=== PATIENT | male | born 1995 | race African-American/Black ===

== ENCOUNTER 2016-10-17 21:55 | Emergency (ER) | payer SELFPAY ==
[2016-10-17] MEDS ORDERED: IBUPROFEN 600 MG TABLET PO ONE (22:34)
[2016-10-17] MEDS ORDERED: ACETAMINOPHEN 325 MG TABLET PO ONE (22:34)
--- NOTE | 2016-10-17 23:00 | RADIOLOGY REPORT (SQ) ---
EXAM DESCRIPTION: ANKLE LEFT COMPLETE COMPLETED DATE/TIME: 10/17/2016 10:53 pm REASON FOR STUDY: fall injury COMPARISON: None. NUMBER OF VIEWS: Three views. TECHNIQUE: AP, lateral, and oblique radiographic images acquired of the left ankle. LIMITATIONS: None. FINDINGS: MINERALIZATION: Normal. BONES: No acute fracture or dislocation. No worrisome bone lesions. JOINTS: No effusions. SOFT TISSUES: Lateral soft tissue swelling. No foreign body. OTHER: No other significant finding. IMPRESSION: LATERAL SOFT TISSUE SWELLING. NO SIGNIFICANT BONY FINDINGS. TECHNICAL DOCUMENTATION: JOB ID: [id number] [employer]- All Rights Reserved
--- NOTE | 2016-10-17 23:38 | ER Document Report ---
ED General - General Chief Complaint: Ankle Injury Stated Complaint: ANKLE INJURY Time Seen by Provider: 10/17/16 22:34 Notes: Patient is a 20-year-old male without past medical history, is morbidly obese who presents after twisting his ankle while walking down steps just prior to arrival. He notes a constant, severe, throbbing pain to the left ankle. He has been unable to ambulate since the injury. He denies any additional injuries during this event. No history of similar symptoms in the past. He has not tried any to improve his pain. He has not seen his primary care doctor regarding today's concerns. TRAVEL OUTSIDE OF THE [place] IN LAST 30 DAYS: No - Related Data Allergies/Adverse Reactions: Sulfa (Sulfonamide Antibiotics) Allergy (Verified 10/17/16 22:11) Past Medical History - General Information source: Patient - Social History Smoking Status: Never Smoker Chew tobacco use (# tins/day): No Frequency of alcohol use: None Drug Abuse: None Lives with: Family Family History: Reviewed & Not Pertinent Renal/ Medical History: Denies: Hx Peritoneal Dialysis Surgical Hx: Negative - Immunizations Hx Diphtheria, Pertussis, Tetanus Vaccination: Yes Review of Systems - Review of Systems Notes: Constitutional: Negative for fever. HENT: Negative for sore throat. Eyes: Negative for visual changes. Cardiovascular: Negative for chest pain. Respiratory: Negative for shortness of breath. Gastrointestinal: Negative for abdominal pain, vomiting or diarrhea. Genitourinary: Negative for dysuria. Musculoskeletal: Positive for left ankle pain Skin: Negative for rash. Neurological: Negative for headaches, weakness or numbness. 10 point ROS negative except as marked above and in HPI. Physical Exam - Vital signs Vitals: Temp Pulse Resp BP Pulse Ox 99.0 F 80 16 128/72 H 96 10/17/16 22:16 10/17/16 22:16 10/17/16 22:16 10/17/16 22:16 10/17/16 22:16 Interpretation: Normal Notes: PHYSICAL EXAMINATION: GENERAL: Well-appearing, well-nourished and in no acute distress. HEAD: Atraumatic, normocephalic. EYES: sclera anicteric, conjunctiva are normal. ENT: Moist mucous membranes. NECK: Normal range of motion LUNGS: Normal work of breathing HEART: 2+ radial pulses bilaterally EXTREMITIES: There is swelling of the left ankle, most dominant over the lateral malleolus. No tenderness over the navicular or over the base of the fifth toe. Plantar and dorsiflexion intact but extremely painful. No other extremity findings. NEUROLOGICAL: No focal neurological deficits. Moves all extremities spontaneously and on command. PSYCH: Normal mood, normal affect. SKIN: Warm, Dry, normal turgor, no rashes or lesions noted. Course - Re-evaluation Re-evalutation: 10/17/16 23:35 No evidence of a septic joint, gout flare, dislocation, or fracture on exam and imaging. Exam is most consistent with a ligamentous injury and I have explained to the patient that he will require therapy with NSAIDs, compression, immobilization, crutches and likely orthopedic follow-up. Vitals wnl. At this time, I do not see an indication for labs or further imaging. At this time will discharge with return precautions and follow-up recommendations. Verbal discharge instructions given a the bedside and opportunity for questions given. Medication warnings reviewed. Patient is in agreement with this plan and has verbalized understanding of return precautions and the need for primary care follow-up in the next 24-72 hours. - Vital Signs Vital signs: Temp Pulse Resp BP Pulse Ox 98.2 F 93 18 145/85 H 95 10/17/16 23:52 10/17/16 23:52 10/17/16 23:52 10/17/16 23:52 10/17/16 23:52 - Diagnostic Test Radiology reviewed: Image reviewed, Reports reviewed Radiology results interpreted by me: 10/17/16 23:36 Left ankle: No acute fracture or dislocation. Prominent soft tissue swelling. Discharge - Discharge Clinical Impression: Left ankle injury Qualifiers: Encounter type: initial encounter Qualified Code(s): S99.912A - Unspecified injury of left ankle, initial encounter Condition: Good Disposition: HOME, SELF-CARE Additional Instructions: Your x-ray does not show any acute fracture today. You likely have a ligamentous strain. For your pain: Take ibuprofen 600 mg and acetaminophen 1000 mg every 6 hours together as needed for pain. Continue to apply ice to the area is much your able. Please follow-up with your primary care physician if you do not have improving your symptoms in the next 1-2 weeks. Please return immediately if you develop weakness, numbness, spreading redness from the area, or any other symptoms that are concerning to you. Referrals: SIMBA PAREDES MD [ACTIVE STAFF] - Follow up as needed
[2016-10-18 00:03] VITALS: BP 145/85
== END 2016-10-18 00:19 | disposition home or self-care (01) ==
LOC: ER 21:55
DX: S99.912A Unspecified injury of left ankle, initial encounter (principal); E66.01 Morbid (severe) obesity due to excess calories; X50.1XXA Overexertion from prolonged static or awkward postures, initial encounter
CPT/HCPCS: 99283